=== PATIENT | female | born 1995 | race Caucasian/White ===

== ENCOUNTER → 2021-08-18 02:34 | Outpatient (CLI) | payer BC, SELFPAY ==
[2021-08-18 16:50] LABS: SARS-CoV-2 RNA PCR Negative
== END ==
PROVIDERS: PCP Pediatrics; Visit Provider Internal Medicine
DX: R07.0 Pain in throat (principal); Z20.822 Contact with and (suspected) exposure to COVID-19
CPT/HCPCS: C9803; U0003; U0005

== ENCOUNTER 2021-08-18 10:22 | Outpatient (CLI) | payer BC, SELFPAY ==
[2021-08-18 11:30] LABS: Influenza Control Positive
== END 2021-08-18 10:23 | disposition home or self-care (01) ==
LOC: ANHLAB 10:24
PROVIDERS: PCP Internal Medicine; Visit Provider Internal Medicine
DX: R07.0 Pain in throat (principal)
CPT/HCPCS: 87081; 87804

== ENCOUNTER 2022-12-25 16:49 | Outpatient (CLI) | payer BC, SELFPAY | END 2022-12-25 16:50 | disposition home or self-care (01) | LOC: CHSLAB 16:56 | PROVIDERS: PCP Internal Medicine; Visit Provider Specialist | DX: D22.5 Melanocytic nevi of trunk (principal) | CPT/HCPCS: 88305; 88342 ==

== ENCOUNTER 2024-01-01 15:19 | Outpatient (CLI) | payer BC, SELFPAY ==
--- NOTE | ~2024-01-01 | US_ITS ---
left axilla ultrasound Ordering provider: Nurys Agustin MD History: . R59.1 - Generalized enlarged lymph nodes . Comparison: None. FINDINGS/impression: lymph node is seen which measures 3.1 x 2.7 x 1.7 cm. No other definite abnormality Reviewed, dictated and finalized at location A.
== END 2024-01-01 15:20 | disposition home or self-care (01) ==
LOC: GOSHIMG 15:22
PROVIDERS: PCP Internal Medicine; Visit Provider Obstetrics & Gynecology
DX: R59.1 Generalized enlarged lymph nodes (principal)
CPT/HCPCS: 76882

== ENCOUNTER 2024-05-25 09:13 | Outpatient (CLI) | payer BC, SELFPAY ==
--- NOTE | ~2024-05-25 | US_ITS ---
EXAMINATION: US thyroid DATE: 05/25/2024 09:28 INDICATION: One-year follow-up TECHNIQUE: Multiple ultrasound images of the thyroid were obtained. COMPARISON: None. FINDINGS: The right thyroid lobe measures 4.1 x 1.8 x 1.3 cm. Within the upper pole of the right lobe of the thyroid gland is a 8.1 x 4.7 x 6.5 mm nodule: Composition -cystic Echogenicity -anechoic Shape - wider than tall Margin - smooth Echogenic foci - none. = TR1 benign. The left thyroid lobe measures 4.2 x 1.2 x 1.5 cm. The isthmus measures 0.4cm in anterior to posterior dimension. There is normal echotexture and echogenicity throughout the remainder of the thyroid gland. No additi onal discrete nodules identified. Normal vascular flow is present. IMPRESSION: TR1 nodule in the right lobe of the thyroid gland measuring 8.1 mm in greatest dimension. This nodule is not sonographically suspicious and no FNA is recommended Follow-up may be performed. Reviewed, dictated and finalized at location A.
== END 2024-05-25 09:14 | disposition home or self-care (01) ==
PROVIDERS: PCP Internal Medicine
DX: E04.1 Nontoxic single thyroid nodule (principal); R93.89 Abnormal findings on diagnostic imaging of other specified body structures
CPT/HCPCS: 76536